=== PATIENT | female | born 1950 | race Caucasian/White ===

== ENCOUNTER 2017-05-17 16:13 | Emergency (ER) | payer MEDICARE ==
[~2017-05-17] VITALS: Ht 177.8 cm; Wt 73.9 kg
[~2017-05-17 16:13] MED LIST: ALPR0.25; BENA1TAB9 PO; HYDR25TA6; LEVO150T
[2017-05-17] MEDS ORDERED: PHENAZOPYRIDINE 200 MG TABLET ONE (16:56)
[2017-05-17] MEDS ORDERED: PHENAZOPYRIDINE 200 MG TABLET PO ONE (17:00)
[2017-05-17 17:37] LABS: PATH.CAST-FLAG NOT PRESENT; SPERM-FLAG NOT PRESENT; SRC-FLAG NOT PRESENT; XTAL-FLAG NOT PRESENT; YLC-FLAG NOT PRESENT
[2017-05-17] MEDS ORDERED: CEFTRIAXONE 1,000 MG IM ONE (18:30)
[2017-05-17] MEDS ORDERED: CEFTRIAXONE 1,000 MG ONE (18:31)
[2017-05-17] MEDS ORDERED: LIDOCAINE 1%, 20ML ONE (18:31)
[2017-05-17 19:16] VITALS: BP 159/91
== END 2017-05-17 19:18 | disposition home or self-care (01) ==
LOC: ED 16:55
DX: N30.91 Cystitis, unspecified with hematuria (principal); N39.0 Urinary tract infection, site not specified; I10 Essential (primary) hypertension; E03.9 Hypothyroidism, unspecified; F41.9 Anxiety disorder, unspecified; F17.210 Nicotine dependence, cigarettes, uncomplicated
CPT/HCPCS: 81001; 87077; 87086; 96372; 99284; J0696; 87186